=== PATIENT | male | born 1965 | race Two or more races ===

== ENCOUNTER 2022-06-14 16:13 | Emergency (ER) | payer OTHER ==
[~2022-06-14] VITALS: Ht 177.8 cm; Wt 80.0 kg
[2022-06-14 17:53] LABS: COVID AG,FIA SOURCE NASOPHARYNGEAL
[2022-06-14 18:05] LABS: ANION GAP 8 mmol/L (8-16); CALCIUM, TOTAL 9.2 mg/dL (8.8-10.5); CARBON DIOXIDE 30 mmol/L (22-29); CHLORIDE 107 mmol/L (98-107); CREATININE 1.18 mg/dL (0.60-1.30); GLOMERULAR FILTR. RATE CALC > 60 mL/min (>60); GLUCOSE,RANDOM 98 mg/dL (70-110); POTASSIUM 4.1 mmol/L (3.5-5.1); SODIUM SERUM 145 mmol/L (136-145); UREA NITROGEN, BLOOD 17 mg/dL (7-18)
[2022-06-14 18:11] LABS: ALANINE AMINOTRANSFERASE 24 U/L (12-78); ALBUMIN 3.9 g/dL (3.4-5.0); ALKALINE PHOSPHATASE 64 U/L (46-116); ASPARTATE AMINOTRANSFERASE 19 U/L (15-37); BILIRUBIN,TOTAL 1.4 mg/dL (0.1-1.0); TOTAL PROTEIN, SERUM 7.1 g/dL (6.4-8.2)
[2022-06-14 18:12] LABS: BASOPHILS % (AUTO) 0.1 % (0.0-2.0); EOSINOPHILS % (AUTO) 0.2 % (1.0-6.0); HEMATOCRIT 45.3 % (41-53); HEMOGLOBIN 14.7 g/dL (13.5-17.5); LYMPHOCYTES # (AUTO) 1.4 K/uL (1.0-4.8); LYMPHOCYTES % (AUTO) 16.6 % (22.0-44.0); MEAN CORPUSCULAR HEMOGLOBIN 27.5 pg (26.0-34.0); MEAN CORPUSCULAR HGB CONC 32.5 G/dL (31.0-37.0); MEAN CORPUSCULAR VOLUME 85 fL (80-100); MONOCYTES # (AUTO) 0.5 K/uL (0.1-1.0); MONOCYTES % (AUTO) 6.3 % (2.0-9.0); NEUTROPHILS # (AUTO) 6.6 K/uL (1.8-7.7); NEUTROPHILS % (AUTO) 76.8 % (40.0-70.0); PLATELET COUNT (AUTO) 173 K/uL (150-450); RED BLOOD CELL COUNT(AUTO) 5.37 MIL/uL (4.50-5.90); RED CELL DISTRIBUTION WIDTH 13.8 % (11.5-14.5)
[2022-06-14 18:59] VITALS: BP 157/104
== END 2022-06-14 19:16 | disposition home or self-care (01) ==
LOC: EMS 16:13
DX: R45.851 Suicidal ideations (principal); F10.20 Alcohol dependence, uncomplicated; Z20.822 Contact with and (suspected) exposure to COVID-19
CPT/HCPCS: 99284; 87426; 80053; 85025; 36415; G0480

== ENCOUNTER 2022-06-19 13:20 | Emergency (ER) | payer OTHER ==
[~2022-06-19] VITALS: Ht 177.8 cm; Wt 70.0 kg
[2022-06-19 14:12] LABS: BASOPHILS % (AUTO) 0.3 % (0.0-2.0); EOSINOPHILS % (AUTO) 0.4 % (1.0-6.0); HEMATOCRIT 47.2 % (41-53); HEMOGLOBIN 15.4 g/dL (13.5-17.5); LYMPHOCYTES # (AUTO) 1.8 K/uL (1.0-4.8); LYMPHOCYTES % (AUTO) 25.7 % (22.0-44.0); MEAN CORPUSCULAR HEMOGLOBIN 27.8 pg (26.0-34.0); MEAN CORPUSCULAR HGB CONC 32.7 G/dL (31.0-37.0); MEAN CORPUSCULAR VOLUME 85 fL (80-100); MONOCYTES # (AUTO) 0.4 K/uL (0.1-1.0); MONOCYTES % (AUTO) 6.2 % (2.0-9.0); NEUTROPHILS # (AUTO) 4.8 K/uL (1.8-7.7); NEUTROPHILS % (AUTO) 67.4 % (40.0-70.0); PLATELET COUNT (AUTO) 172 K/uL (150-450); RED BLOOD CELL COUNT(AUTO) 5.55 MIL/uL (4.50-5.90); RED CELL DISTRIBUTION WIDTH 13.9 % (11.5-14.5)
[2022-06-19 14:30] LABS: B-TYPE NATRIURETIC PEPTIDE 6 pg/mL (0-100)
[2022-06-19 14:33] LABS: ANION GAP 12 mmol/L (8-16); CALCIUM, TOTAL 8.8 mg/dL (8.8-10.5); CARBON DIOXIDE 24 mmol/L (22-29); CHLORIDE 106 mmol/L (98-107); CREATININE 1.06 mg/dL (0.60-1.30); GLOMERULAR FILTR. RATE CALC > 60 mL/min (>60); GLUCOSE,RANDOM 137 mg/dL (70-110); POTASSIUM 3.5 mmol/L (3.5-5.1); SODIUM SERUM 142 mmol/L (136-145); UREA NITROGEN, BLOOD 13 mg/dL (7-18)
[2022-06-19 14:36] LABS: PROTHROMBIN TIME 10.9 SEC (9.4-11.6)
[2022-06-19 14:38] LABS: ALANINE AMINOTRANSFERASE 25 U/L (12-78); ALKALINE PHOSPHATASE 60 U/L (46-116); ASPARTATE AMINOTRANSFERASE 19 U/L (15-37); BILIRUBIN,TOTAL 1.1 mg/dL (0.1-1.0); CREATINE KINASE, TOTAL ONLY 61 U/L (39-308); PHOSPHORUS 2.8 mg/dL (2.5-4.9); TOTAL PROTEIN, SERUM 7.1 g/dL (6.4-8.2)
[2022-06-19 14:46] LABS: SALICYLATE < 0.2 mg/dL (2.8-20.0)
[2022-06-19 14:51] LABS: ACETAMINOPHEN < 2 mcg/mL (10-30)
[2022-06-19 15:18] LABS: COVID AG,FIA SOURCE NASOPHARYNGEAL
[2022-06-19 15:35] LABS: APPEARANCE,URINE CLEAR (CLEAR); BILIRUBIN,URINE NEGATIVE (NEGATIVE); GLUCOSE, URINE (UA) NEGATIVE (NEGATIVE); KETONES,URINE NEGATIVE (NEGATIVE); LEUKOCYTE ESTERASE ,URINE NEGATIVE (NEGATIVE); NITRATE,URINE NEGATIVE (NEGATIVE); OCCULT BLOOD,URINE NEGATIVE (NEGATIVE); PROTEIN,URINE NEGATIVE (NEGATIVE); UROBILINOGEN,URINE <=1.0 mg/dL (<=1.0)
[2022-06-19 15:40] LABS: AMPHET/METH SCREEN,URINE NEGATIVE (NEGATIVE); BARBITURATE SCREEN, URINE NEGATIVE (NEGATIVE); BENZODIAZEPINES SCREEN,URINE NEGATIVE (NEGATIVE); CANNABINOID SCREEN,URINE NEGATIVE (NEGATIVE); COCAINE SCREEN,URINE NEGATIVE (NEGATIVE); METHADONE SCREEN, URINE NEGATIVE (NEGATIVE); OPIATE SCREEN,URINE NEGATIVE (NEGATIVE); PHENCYCLIDINE SCREEN,URINE NEGATIVE (NEGATIVE)
[2022-06-19] MEDS ORDERED: IBUPROFEN 600 MG TABLET PO ONE (21:30)
[2022-06-19 22:33] VITALS: BP 113/69
== END 2022-06-19 23:10 | disposition home or self-care (01) ==
LOC: EDUNIT# 13:20 → EMS 13:23
DX: F10.129 Alcohol abuse with intoxication, unspecified (principal); R73.9 Hyperglycemia, unspecified; Z20.822 Contact with and (suspected) exposure to COVID-19
CPT/HCPCS: 99285; 71045; 87426; 80053; 81003; 82550; 83735; 83880; 84100; 84484; 85025; 85610; 85730; 36415; 93005; 80307 ×2; G0480; G0481

== ENCOUNTER 2022-06-20 14:06 | Inpatient (IN) | payer OTHER ==
[~2022-06-20] VITALS: Ht 175.3 cm; Wt 74.2 kg
[2022-06-20 15:04] VITALS: BP 130/96
[2022-06-20] MEDS ORDERED: CYANOCOBALAMIN 1,000 MCG/ML VIAL IM ONE (15:45)
[2022-06-20] MEDS ORDERED: LORazepam 2 MG TABLET PO PRN ×2 (15:45)
[2022-06-20] MEDS ORDERED: PROMETHAZINE HCL 25 MG TABLET PO PRN (15:45)
[2022-06-20] MEDS ORDERED: ZOLPIDEM TARTRATE 10 MG TABLET PO PRN (15:45)
[2022-06-20] MEDS ORDERED: LOPERAMIDE HCL 2 MG CAPSULE PO PRN ×2 (15:45)
[2022-06-20] MEDS ORDERED: HydrOXYzine PAMOATE 50 MG CAPSULE PO PRN (15:45)
[2022-06-20] MEDS ORDERED: QUEtiapine FUMARATE 100 MG TABLET PO PRN (15:45)
[2022-06-20] MEDS ORDERED: MAG HYDROX/AL HYDROX/SIMETH ES 30 ML SUSPENSION UDCUP PO PRN (15:45)
[2022-06-20] MEDS ORDERED: TUBERCULIN, PURIFIED PROTEIN DERIVATIVE 5 TU/0.1 ML SYRINGE ID ONE (15:45)
[2022-06-20] MEDS ORDERED: GuaiFENesin/D-METHORPHAN [SUGAR-FREE] 200-20MG/10 ML SYRUP UDCUP PO PRN (15:45)
[2022-06-20 17:26] VITALS: BP 140/96
[2022-06-20] MEDS: GABAPENTIN 300 MG CAPSULE PO SCH ×2 (17:27→20:26)
[2022-06-20] MEDS: THIAMINE 100 MG TABLET PO SCH (17:27)
[2022-06-20 17:45] VITALS: BP 136/92
[2022-06-20 18:00] VITALS: BP 133/92
[2022-06-20 18:15] VITALS: BP 130/90
[2022-06-20] MEDS ORDERED: INFLUENZA VIRUS VACCINE QVS 2022-23 (6MO+)/PF 60 MCG/0.5 ML SYRINGE IM. ONE (19:00)
[2022-06-20 19:24] LABS: BASOPHILS % (AUTO) 0.3 % (0.0-2.0); EOSINOPHILS % (AUTO) 0.3 % (1.0-6.0); HEMATOCRIT 51.7 % (41-53); HEMOGLOBIN 16.9 g/dL (13.5-17.5); LYMPHOCYTES # (AUTO) 1.8 K/uL (1.0-4.8); LYMPHOCYTES % (AUTO) 18.2 % (22.0-44.0); MEAN CORPUSCULAR HGB CONC 32.7 G/dL (31.0-37.0); MEAN CORPUSCULAR VOLUME 86 fL (80-100); MONOCYTES # (AUTO) 0.7 K/uL (0.1-1.0); MONOCYTES % (AUTO) 7.1 % (2.0-9.0); NEUTROPHILS # (AUTO) 7.1 K/uL (1.8-7.7); NEUTROPHILS % (AUTO) 74.1 % (40.0-70.0); PLATELET COUNT (AUTO) 213 K/uL (150-450); RED BLOOD CELL COUNT(AUTO) 6.05 MIL/uL (4.50-5.90); RED CELL DISTRIBUTION WIDTH 13.8 % (11.5-14.5)
[2022-06-20 19:34] LABS: HEMOGLOBIN A1C 5.4 % (3.8-5.6)
[2022-06-20 19:38] LABS: ALBUMIN 4.9 g/dL (3.4-5.0); BILIRUBIN,TOTAL 1.5 mg/dL (0.1-1.0); CALCIUM, TOTAL 9.6 mg/dL (8.8-10.5); CHOL/HDL RATIO 3.3 (4.2-7.3); CREATININE 1.27 mg/dL (0.60-1.30); POTASSIUM 4.9 mmol/L (3.5-5.1); TOTAL PROTEIN, SERUM 8.1 g/dL (6.4-8.2)
[2022-06-20 20:01] LABS: FREE T4 (FREE THYROXINE) 1.02 ng/dL (0.76-1.46); THYROID STIMULATING HORMONE 1.37 uIU/mL (0.36-3.74)
[2022-06-20] MEDS: MELATONIN 5 MG TABLET PO SCH (20:26)
[2022-06-20] MEDS ORDERED: MIRTAZAPINE 15 MG TABLET PO SCH (21:00)
[2022-06-20] MEDS ORDERED: DIAZEPAM 10 MG TABLET PO PRN (22:30)
[2022-06-20 23:43] VITALS: BP 127/70
[2022-06-21] VITALS (7 sets, daily range): BP systolic 117–140; BP diastolic 70–84
[2022-06-21] MEDS ORDERED: DIAZEPAM 10 MG TABLET PO PRN (07:00)
[2022-06-21] MEDS ORDERED: LORazepam 2 MG TABLET PO PRN (07:00)
[2022-06-21 07:55] LABS: BASOPHILS % (AUTO) 0.3 % (0.0-2.0); EOSINOPHILS % (AUTO) 1.3 % (1.0-6.0); HEMATOCRIT 42.4 % (41-53); HEMOGLOBIN 14.5 g/dL (13.5-17.5); LYMPHOCYTES # (AUTO) 2.5 K/uL (1.0-4.8); MEAN CORPUSCULAR HGB CONC 34.2 G/dL (31.0-37.0); MEAN CORPUSCULAR VOLUME 85 fL (80-100); MONOCYTES # (AUTO) 0.6 K/uL (0.1-1.0); MONOCYTES % (AUTO) 7.8 % (2.0-9.0); NEUTROPHILS # (AUTO) 3.9 K/uL (1.8-7.7); NEUTROPHILS % (AUTO) 54.6 % (40.0-70.0); PLATELET COUNT (AUTO) 157 K/uL (150-450); RED CELL DISTRIBUTION WIDTH 13.5 % (11.5-14.5)
[2022-06-21 08:37] LABS: ALBUMIN 3.6 g/dL (3.4-5.0); BILIRUBIN,TOTAL 0.9 mg/dL (0.1-1.0); CALCIUM, TOTAL 9.1 mg/dL (8.8-10.5); CHOL/HDL RATIO 3.6 (4.2-7.3); CREATININE 1.43 mg/dL (0.60-1.30); FREE T4 (FREE THYROXINE) 0.91 ng/dL (0.76-1.46); POTASSIUM 4.2 mmol/L (3.5-5.1); THYROID STIMULATING HORMONE 1.65 uIU/mL (0.36-3.74); TOTAL PROTEIN, SERUM 6.5 g/dL (6.4-8.2)
[2022-06-21] MEDS: NALTREXONE HCL 50 MG TABLET PO SCH (08:48)
[2022-06-21] MEDS: MULTIVITAMINS WITH MINERALS, THERAPEUTIC TABLET PO SCH (08:48)
[2022-06-21] MEDS: DIAZEPAM 10 MG TABLET PO SCH ×4 (08:48→21:26)
[2022-06-21] MEDS: THIAMINE 100 MG TABLET PO SCH ×2 (08:48→16:42)
[2022-06-21] MEDS: GABAPENTIN 300 MG CAPSULE PO SCH ×4 (08:48→21:26)
[2022-06-21] MEDS: OMEGA-3/DHA/EPA/FISH OIL 1,000 MG CAPSULE PO SCH (08:49)
[2022-06-21] MEDS: FOLIC ACID 1 MG TABLET PO SCH (08:49)
[2022-06-21] MEDS: DIVALPROEX SODIUM 250 MG ER TABLET PO SCH (08:49)
[2022-06-21 08:57] LABS: HEMOGLOBIN A1C 5.5 % (3.8-5.6)
[2022-06-21] MEDS ORDERED: LORazepam 2 MG TABLET PO SCH (09:00)
[2022-06-21 15:22] LABS: APPEARANCE,URINE TURBID (CLEAR); BILIRUBIN,URINE NEGATIVE (NEGATIVE); GLUCOSE, URINE (UA) NEGATIVE (NEGATIVE); KETONES,URINE NEGATIVE (NEGATIVE); LEUKOCYTE ESTERASE ,URINE NEGATIVE (NEGATIVE); NITRATE,URINE NEGATIVE (NEGATIVE); OCCULT BLOOD,URINE MODERATE (NEGATIVE); PH,URINE 5.5 (5.0-8.0); PROTEIN,URINE TRACE mg/dL (NEGATIVE); SPECIFIC GRAVITIY, URINE 1.027 (1.003-1.030); UROBILINOGEN,URINE <=1.0 mg/dL (<=1.0)
[2022-06-21 15:44] LABS: BACTERIA,URINE Many /HPF (None Seen); CALCIUM OXALATE CRYSTALS,UR Few /LPF (None Seen); WBC,URINE 0-2 /HPF (0-5)
[2022-06-21 16:03] LABS: AMPHET/METH SCREEN,URINE NEGATIVE (NEGATIVE); BARBITURATE SCREEN, URINE NEGATIVE (NEGATIVE); BENZODIAZEPINES SCREEN,URINE POSITIVE (NEGATIVE); CANNABINOID SCREEN,URINE NEGATIVE (NEGATIVE); COCAINE SCREEN,URINE NEGATIVE (NEGATIVE); METHADONE SCREEN, URINE NEGATIVE (NEGATIVE); OPIATE SCREEN,URINE NEGATIVE (NEGATIVE); PHENCYCLIDINE SCREEN,URINE NEGATIVE (NEGATIVE)
[2022-06-21] MEDS: MELATONIN 5 MG TABLET PO SCH (21:25)
[2022-06-21] MEDS: MIRTAZAPINE 30 MG TABLET PO SCH (21:25)
[2022-06-22 08:05] VITALS: BP 150/98
[2022-06-22] MEDS: OMEGA-3/DHA/EPA/FISH OIL 1,000 MG CAPSULE PO SCH (08:25)
[2022-06-22] MEDS: DIVALPROEX SODIUM 250 MG ER TABLET PO SCH (08:26)
[2022-06-22] MEDS: THIAMINE 100 MG TABLET PO SCH ×2 (08:26→17:09)
[2022-06-22] MEDS: MULTIVITAMINS WITH MINERALS, THERAPEUTIC TABLET PO SCH (08:26)
[2022-06-22] MEDS: GABAPENTIN 300 MG CAPSULE PO SCH ×4 (08:26→20:31)
[2022-06-22] MEDS: FOLIC ACID 1 MG TABLET PO SCH (08:26)
[2022-06-22] MEDS: NALTREXONE HCL 50 MG TABLET PO SCH (08:26)
[2022-06-22] MEDS: DIAZEPAM 10 MG TABLET PO SCH ×4 (08:27→20:31)
[2022-06-22 08:34] VITALS: BP 150/98
[2022-06-22] MEDS: NITROFURANTOIN MONOHYD/M-CRYST 100 MG CAPSULE [MACROBID] PO SCH ×2 (10:51→17:09)
[2022-06-22 20:05] VITALS: BP 138/91
[2022-06-22] MEDS: MIRTAZAPINE 30 MG TABLET PO SCH (20:31)
[2022-06-22] MEDS: MELATONIN 5 MG TABLET PO SCH (20:31)
[2022-06-23] MEDS ORDERED: LORazepam 1 MG TABLET PO PRN (07:00)
[2022-06-23] MEDS ORDERED: DIAZEPAM 5 MG TABLET PO PRN (07:00)
[2022-06-23 08:32] VITALS: BP 137/81
[2022-06-23] MEDS: DIAZEPAM 5 MG TABLET PO SCH ×4 (08:45→21:01)
[2022-06-23] MEDS: THIAMINE 100 MG TABLET PO SCH ×2 (08:45→16:36)
[2022-06-23] MEDS: NITROFURANTOIN MONOHYD/M-CRYST 100 MG CAPSULE [MACROBID] PO SCH ×2 (08:45→16:36)
[2022-06-23] MEDS: MULTIVITAMINS WITH MINERALS, THERAPEUTIC TABLET PO SCH (08:45)
[2022-06-23] MEDS: OMEGA-3/DHA/EPA/FISH OIL 1,000 MG CAPSULE PO SCH (08:45)
[2022-06-23] MEDS: GABAPENTIN 300 MG CAPSULE PO SCH ×4 (08:45→21:00)
[2022-06-23] MEDS: NALTREXONE HCL 50 MG TABLET PO SCH (08:45)
[2022-06-23] MEDS: FOLIC ACID 1 MG TABLET PO SCH (08:45)
[2022-06-23] MEDS: DIVALPROEX SODIUM 250 MG ER TABLET PO SCH (08:45)
[2022-06-23] MEDS ORDERED: LORazepam 1 MG TABLET PO SCH (09:00)
[2022-06-23 09:46] VITALS: BP 138/91
[2022-06-23 16:13] VITALS: BP 136/92
[2022-06-23 20:55] VITALS: BP 144/92
[2022-06-23] MEDS: MIRTAZAPINE 30 MG TABLET PO SCH (21:00)
[2022-06-23] MEDS: MELATONIN 5 MG TABLET PO SCH (21:00)
[2022-06-23 21:47] VITALS: BP 138/78
[2022-06-24] MEDS ORDERED: DIAZEPAM 5 MG TABLET PO PRN (07:00)
[2022-06-24] MEDS ORDERED: LORazepam 1 MG TABLET PO PRN (07:00)
[2022-06-24 08:24] VITALS: BP 134/90
[2022-06-24] MEDS: MULTIVITAMINS WITH MINERALS, THERAPEUTIC TABLET PO SCH (09:11)
[2022-06-24] MEDS: NITROFURANTOIN MONOHYD/M-CRYST 100 MG CAPSULE [MACROBID] PO SCH ×2 (09:12→16:50)
[2022-06-24] MEDS: OMEGA-3/DHA/EPA/FISH OIL 1,000 MG CAPSULE PO SCH (09:12)
[2022-06-24] MEDS: GABAPENTIN 300 MG CAPSULE PO SCH ×4 (09:12→20:26)
[2022-06-24] MEDS: NALTREXONE HCL 50 MG TABLET PO SCH (09:12)
[2022-06-24] MEDS: THIAMINE 100 MG TABLET PO SCH ×2 (09:12→16:50)
[2022-06-24] MEDS: DIVALPROEX SODIUM 250 MG ER TABLET PO SCH (09:12)
[2022-06-24] MEDS: FOLIC ACID 1 MG TABLET PO SCH (09:12)
[2022-06-24 09:44] VITALS: BP 134/90
[2022-06-24] MEDS: MELATONIN 5 MG TABLET PO SCH (20:26)
[2022-06-24] MEDS: MIRTAZAPINE 30 MG TABLET PO SCH (20:26)
[2022-06-24 20:39] VITALS: BP 128/82
[2022-06-25 08:27] VITALS: BP 126/79
[2022-06-25] MEDS: THIAMINE 100 MG TABLET PO SCH ×2 (09:41→16:56)
[2022-06-25] MEDS: OMEGA-3/DHA/EPA/FISH OIL 1,000 MG CAPSULE PO SCH (09:41)
[2022-06-25] MEDS: NITROFURANTOIN MONOHYD/M-CRYST 100 MG CAPSULE [MACROBID] PO SCH ×2 (09:42→16:56)
[2022-06-25] MEDS: DIVALPROEX SODIUM 250 MG ER TABLET PO SCH (09:42)
[2022-06-25] MEDS: NALTREXONE HCL 50 MG TABLET PO SCH (09:42)
[2022-06-25] MEDS: MULTIVITAMINS WITH MINERALS, THERAPEUTIC TABLET PO SCH (09:42)
[2022-06-25] MEDS: GABAPENTIN 300 MG CAPSULE PO SCH ×4 (09:42→21:00)
[2022-06-25] MEDS: FOLIC ACID 1 MG TABLET PO SCH (09:42)
[2022-06-25 10:16] LABS: GLUCOMETER DEV NAME(LOC) POC.BV
[2022-06-25] MEDS ORDERED: QUEtiapine FUMARATE 200 MG TABLET PO PRN (16:00)
[2022-06-25] MEDS ORDERED: GABAPENTIN 300 MG CAPSULE PO PRN (16:00)
[2022-06-25 20:34] VITALS: BP 144/99
[2022-06-25] MEDS ORDERED: QUEtiapine FUMARATE 200 MG TABLET PO SCH (21:00)
[2022-06-25] MEDS ORDERED: ZOLPIDEM TARTRATE 10 MG TABLET PO SCH (21:00)
[2022-06-25] MEDS ORDERED: DIVALPROEX SODIUM 250 MG ER TABLET PO SCH (21:00)
[2022-06-25] MEDS: MELATONIN 5 MG TABLET PO SCH (21:23)
[2022-06-25] MEDS: MIRTAZAPINE 30 MG TABLET PO SCH (21:34)
[2022-06-26] MEDS: NITROFURANTOIN MONOHYD/M-CRYST 100 MG CAPSULE [MACROBID] PO SCH ×2 (08:46→16:37)
[2022-06-26] MEDS: MULTIVITAMINS WITH MINERALS, THERAPEUTIC TABLET PO SCH (08:46)
[2022-06-26] MEDS: GABAPENTIN 300 MG CAPSULE PO SCH ×3 (08:46→16:37)
[2022-06-26] MEDS: FOLIC ACID 1 MG TABLET PO SCH (08:47)
[2022-06-26] MEDS: THIAMINE 100 MG TABLET PO SCH ×2 (08:47→16:37)
[2022-06-26] MEDS: NALTREXONE HCL 50 MG TABLET PO SCH (08:47)
[2022-06-26] MEDS: OMEGA-3/DHA/EPA/FISH OIL 1,000 MG CAPSULE PO SCH (08:47)
[2022-06-26] MEDS ORDERED: MODAFINIL 100 MG TABLET PO SCH (09:00)
[2022-06-26 09:17] VITALS: BP 140/90
[2022-06-26] MEDS: MELATONIN 5 MG TABLET PO SCH (20:30)
[2022-06-26] MEDS: ZALEPLON 5 MG CAPSULE PO SCH (20:30)
[2022-06-26 20:47] VITALS: BP 136/92
[2022-06-26] MEDS: MIRTAZAPINE 30 MG TABLET PO SCH (21:26)
[2022-06-26] MEDS ORDERED: QUEtiapine FUMARATE 300 MG TABLET PO SCH (22:00)
[2022-06-27] MEDS: GABAPENTIN 300 MG CAPSULE PO SCH ×3 (06:50→16:28)
[2022-06-27] MEDS ORDERED: MODAFINIL 100 MG TABLET PO SCH (07:00)
[2022-06-27 09:24] VITALS: BP 130/84
[2022-06-27] MEDS: NITROFURANTOIN MONOHYD/M-CRYST 100 MG CAPSULE [MACROBID] PO SCH (09:31)
[2022-06-27] MEDS: THIAMINE 100 MG TABLET PO SCH ×2 (09:32→16:28)
[2022-06-27] MEDS: OMEGA-3/DHA/EPA/FISH OIL 1,000 MG CAPSULE PO SCH (09:32)
[2022-06-27] MEDS: FOLIC ACID 1 MG TABLET PO SCH (09:32)
[2022-06-27] MEDS: NALTREXONE HCL 50 MG TABLET PO SCH (09:32)
[2022-06-27] MEDS: MULTIVITAMINS WITH MINERALS, THERAPEUTIC TABLET PO SCH (09:32)
[2022-06-27] MEDS ORDERED: PROPRANOLOL HCL 10 MG TABLET PO ONE (16:00)
[2022-06-27] MEDS: PROPRANOLOL HCL 10 MG TABLET PO SCH (16:17)
[2022-06-27 16:32] VITALS: BP 134/92
[2022-06-27] MEDS ORDERED: LORazepam 1 MG TABLET PO PRN (19:45)
[2022-06-27] MEDS: MELATONIN 5 MG TABLET PO SCH (20:35)
[2022-06-27] MEDS: ZALEPLON 5 MG CAPSULE PO SCH (20:35)
[2022-06-27 20:48] VITALS: BP 143/89
[2022-06-27] MEDS ORDERED: PARoxetine HCL 10 MG TABLET PO SCH (21:00)
[2022-06-27] MEDS: MIRTAZAPINE 30 MG TABLET PO SCH (21:32)
[2022-06-27] MEDS ORDERED: QUEtiapine FUMARATE 200 MG TABLET PO SCH (22:00)
[2022-06-28] MEDS: GABAPENTIN 300 MG CAPSULE PO SCH ×2 (06:40→11:30)
[2022-06-28] MEDS ORDERED: MODAFINIL 100 MG TABLET PO SCH (07:00)
[2022-06-28 07:06] LABS: QUANTIFERON, TB GOLD PLUS Negative (Negative)
[2022-06-28 09:08] VITALS: BP 162/73
[2022-06-28] MEDS: OMEGA-3/DHA/EPA/FISH OIL 1,000 MG CAPSULE PO SCH (09:50)
[2022-06-28] MEDS: THIAMINE 100 MG TABLET PO SCH ×2 (09:51→18:20)
[2022-06-28] MEDS: PROPRANOLOL HCL 10 MG TABLET PO SCH ×3 (09:51→18:20)
[2022-06-28] MEDS ORDERED: OLANZapine 5 MG RAPDIS TABLET PO ONE (17:30)
[2022-06-28] MEDS ORDERED: PARoxetine HCL 10 MG TABLET PO SCH (21:00)
[2022-06-28] MEDS: MELATONIN 5 MG TABLET PO SCH (21:02)
[2022-06-28] MEDS: TraZODone HCL 100 MG TABLET PO SCH (21:03)
[2022-06-28] MEDS: ZALEPLON 5 MG CAPSULE PO SCH (21:03)
[2022-06-28] MEDS: OLANZapine 10 MG RAPDIS TABLET PO SCH (21:05)
[2022-06-28] MEDS: PARoxetine HCL 20 MG TABLET PO SCH (21:05)
[2022-06-29] MEDS: OLANZapine 5 MG RAPDIS TABLET PO PRN (06:44)
[2022-06-29 09:11] VITALS: BP 159/97
[2022-06-29] MEDS: OMEGA-3/DHA/EPA/FISH OIL 1,000 MG CAPSULE PO SCH (09:18)
[2022-06-29] MEDS: PROPRANOLOL HCL 10 MG TABLET PO SCH ×3 (09:19→16:17)
[2022-06-29] MEDS: THIAMINE 100 MG TABLET PO SCH ×2 (09:19→16:17)
[2022-06-29] MEDS: BENZTROPINE MESYLATE 0.5 MG TABLET PO SCH ×3 (09:19→16:17)
[2022-06-29 12:40] VITALS: BP 145/97
[2022-06-29 16:14] VITALS: BP 152/97
[2022-06-29 20:00] VITALS: BP 142/93
[2022-06-29] MEDS: TraZODone HCL 100 MG TABLET PO SCH (20:08)
[2022-06-29] MEDS: MELATONIN 5 MG TABLET PO SCH (20:08)
[2022-06-29] MEDS: PARoxetine HCL 20 MG TABLET PO SCH (20:08)
[2022-06-29] MEDS: ZALEPLON 5 MG CAPSULE PO SCH (20:08)
[2022-06-29] MEDS: OLANZapine 10 MG RAPDIS TABLET PO SCH (21:04)
[2022-06-30] MEDS: OLANZapine 5 MG RAPDIS TABLET PO PRN (03:53)
[2022-06-30 08:22] VITALS: BP 133/86
[2022-06-30] MEDS ORDERED: BENZTROPINE MESYLATE 0.5 MG TABLET PO SCH (09:00)
[2022-06-30] MEDS: THIAMINE 100 MG TABLET PO SCH ×2 (09:00→11:04)
[2022-06-30] MEDS: OMEGA-3/DHA/EPA/FISH OIL 1,000 MG CAPSULE PO SCH ×2 (09:00→11:05)
[2022-06-30] MEDS: PROPRANOLOL HCL 10 MG TABLET PO SCH ×4 (09:00→16:55)
[2022-06-30] MEDS ORDERED: PARoxetine HCL 10 MG TABLET PO SCH (09:00)
[2022-06-30 10:00] VITALS: BP 140/85
[2022-06-30] MEDS: BENZTROPINE MESYLATE 0.5 MG TABLET PO ONE ×2 (10:26→11:04)
[2022-06-30] MEDS: PARoxetine HCL 10 MG TABLET PO ONE ×2 (10:26→11:04)
[2022-06-30 13:01] VITALS: BP 142/80
[2022-06-30 16:41] VITALS: BP 150/79
[2022-06-30] MEDS ORDERED: TEMAZEPAM 15 MG CAPSULE PO PRN (17:45)
[2022-06-30] MEDS ORDERED: PROPRANOLOL HCL 10 MG TABLET PO SCH (18:00)
[2022-06-30] MEDS: QUEtiapine FUMARATE 25 MG TABLET PO SCH (18:27)
[2022-06-30] MEDS: ClonazePAM 0.5 MG TABLET PO SCH (18:27)
[2022-06-30] MEDS: TraZODone HCL 100 MG TABLET PO SCH (20:50)
[2022-06-30] MEDS: ClonazePAM 1 MG TABLET PO SCH (20:50)
[2022-06-30] MEDS: QUEtiapine FUMARATE 100 MG TABLET PO SCH (20:51)
[2022-06-30] MEDS: MELATONIN 5 MG TABLET PO SCH (20:51)
[2022-06-30 21:14] VITALS: BP 148/79
[2022-07-01] MEDS: OMEGA-3/DHA/EPA/FISH OIL 1,000 MG CAPSULE PO SCH (08:49)
[2022-07-01] MEDS: PROPRANOLOL HCL 10 MG TABLET PO SCH ×3 (08:50→16:35)
[2022-07-01] MEDS: QUEtiapine FUMARATE 25 MG TABLET PO SCH ×3 (08:50→16:35)
[2022-07-01] MEDS: ClonazePAM 0.5 MG TABLET PO SCH ×3 (08:50→16:35)
[2022-07-01 11:26] VITALS: BP 120/80
[2022-07-01 13:15] VITALS: BP 120/85
[2022-07-01 16:29] VITALS: BP 132/69
[2022-07-01] MEDS: QUEtiapine FUMARATE 100 MG TABLET PO SCH (20:45)
[2022-07-01] MEDS: ClonazePAM 1 MG TABLET PO SCH (20:45)
[2022-07-01] MEDS: TraZODone HCL 100 MG TABLET PO SCH (20:45)
[2022-07-01] MEDS: MELATONIN 5 MG TABLET PO SCH (20:45)
[2022-07-01 22:10] VITALS: BP 136/73
[2022-07-02] MEDS: ClonazePAM 0.5 MG TABLET PO SCH ×4 (08:35→20:47)
[2022-07-02] MEDS: PROPRANOLOL HCL 10 MG TABLET PO SCH ×3 (08:35→17:01)
[2022-07-02] MEDS: OMEGA-3/DHA/EPA/FISH OIL 1,000 MG CAPSULE PO SCH (08:35)
[2022-07-02] MEDS: QUEtiapine FUMARATE 25 MG TABLET PO SCH ×3 (08:35→17:02)
[2022-07-02 09:09] VITALS: BP 131/77
[2022-07-02] MEDS: TraZODone HCL 100 MG TABLET PO SCH (20:39)
[2022-07-02] MEDS: QUEtiapine FUMARATE 100 MG TABLET PO SCH (20:39)
[2022-07-02] MEDS: MELATONIN 5 MG TABLET PO SCH (20:40)
[2022-07-02] MEDS ORDERED: LORazepam 0.5 MG TABLET PO PRN (20:45)
[2022-07-02 21:00] VITALS: BP 116/79
[2022-07-03] MEDS ORDERED: PARoxetine HCL 10 MG TABLET PO SCH (09:00)
[2022-07-03 09:05] VITALS: BP 125/78
[2022-07-03] MEDS: OMEGA-3/DHA/EPA/FISH OIL 1,000 MG CAPSULE PO SCH (09:09)
[2022-07-03] MEDS: QUEtiapine FUMARATE 25 MG TABLET PO SCH ×2 (09:09→13:10)
[2022-07-03] MEDS: PROPRANOLOL HCL 10 MG TABLET PO SCH ×3 (09:09→16:53)
[2022-07-03] MEDS: ClonazePAM 0.5 MG TABLET PO SCH ×4 (09:12→20:36)
[2022-07-03 13:00] VITALS: BP 115/66
[2022-07-03 16:51] VITALS: BP 116/91
[2022-07-03] MEDS: MELATONIN 5 MG TABLET PO SCH (20:36)
[2022-07-03] MEDS: QUEtiapine FUMARATE 100 MG TABLET PO SCH (20:37)
[2022-07-03] MEDS: TraZODone HCL 100 MG TABLET PO SCH (20:37)
[2022-07-03 20:49] VITALS: BP 126/91
[2022-07-04] MEDS ORDERED: PARoxetine HCL 20 MG TABLET PO SCH (09:00)
[2022-07-04] MEDS: OMEGA-3/DHA/EPA/FISH OIL 1,000 MG CAPSULE PO SCH (09:10)
[2022-07-04] MEDS: PROPRANOLOL HCL 10 MG TABLET PO SCH ×3 (09:10→16:12)
[2022-07-04] MEDS: ClonazePAM 0.5 MG TABLET PO SCH ×4 (09:11→20:05)
[2022-07-04 09:44] VITALS: BP 120/75
[2022-07-04 13:05] VITALS: BP 126/78
[2022-07-04] MEDS: TraZODone HCL 150 MG TABLET PO SCH (20:05)
[2022-07-04] MEDS: QUEtiapine FUMARATE 25 MG TABLET PO SCH (20:06)
[2022-07-04] MEDS: MELATONIN 5 MG TABLET PO SCH (20:12)
[2022-07-04 20:40] VITALS: BP 123/8
[2022-07-05] MEDS: ClonazePAM 0.5 MG TABLET PO SCH ×4 (08:25→20:59)
[2022-07-05] MEDS: OMEGA-3/DHA/EPA/FISH OIL 1,000 MG CAPSULE PO SCH (08:26)
[2022-07-05] MEDS: PROPRANOLOL HCL 10 MG TABLET PO SCH ×3 (08:41→16:53)
[2022-07-05] MEDS ORDERED: PARoxetine HCL 10 MG TABLET PO SCH (09:00)
[2022-07-05 09:12] VITALS: BP 118/76
[2022-07-05 17:26] LABS: GLUCOMETER DEV NAME(LOC) POC.BV
[2022-07-05 20:50] VITALS: BP 127/87
[2022-07-05] MEDS: TraZODone HCL 150 MG TABLET PO SCH (20:58)
[2022-07-05] MEDS: MELATONIN 5 MG TABLET PO SCH (20:59)
[2022-07-05] MEDS: QUEtiapine FUMARATE 25 MG TABLET PO SCH (20:59)
[2022-07-06 08:35] VITALS: BP 119/73
[2022-07-06] MEDS: PROPRANOLOL HCL 10 MG TABLET PO SCH ×3 (08:57→16:46)
[2022-07-06] MEDS: OMEGA-3/DHA/EPA/FISH OIL 1,000 MG CAPSULE PO SCH (08:57)
[2022-07-06] MEDS: ClonazePAM 0.5 MG TABLET PO SCH ×4 (08:58→20:19)
[2022-07-06] MEDS ORDERED: PARoxetine HCL 20 MG TABLET PO SCH (09:00)
[2022-07-06] MEDS ORDERED: BuPROPion HCL XL 150 MG ER TABLET PO SCH (09:00)
[2022-07-06 12:57] VITALS: BP 119/79
[2022-07-06 16:43] VITALS: BP 114/78
[2022-07-06] MEDS: TraZODone HCL 100 MG TABLET PO SCH (20:18)
[2022-07-06] MEDS: QUEtiapine FUMARATE 25 MG TABLET PO SCH (20:19)
[2022-07-06] MEDS: MELATONIN 5 MG TABLET PO SCH (20:20)
[2022-07-06 20:26] VITALS: BP 114/78
[2022-07-06] MEDS ORDERED: QUEtiapine FUMARATE 25 MG TABLET PO SCH (21:00)
[2022-07-07] MEDS: PARoxetine HCL 20 MG TABLET PO SCH (08:40)
[2022-07-07] MEDS: BuPROPion HCL XL 150 MG ER TABLET PO SCH (08:40)
[2022-07-07] MEDS: OMEGA-3/DHA/EPA/FISH OIL 1,000 MG CAPSULE PO SCH (08:40)
[2022-07-07] MEDS: PROPRANOLOL HCL 10 MG TABLET PO SCH ×3 (08:40→16:52)
[2022-07-07] MEDS: ClonazePAM 0.5 MG TABLET PO SCH ×4 (08:41→20:06)
[2022-07-07 08:58] VITALS: BP 129/74
[2022-07-07] MEDS: MAGNESIUM HYDROXIDE SUSPENSION 30 ML UDCUP PO PRN (12:38)
[2022-07-07] MEDS: TraZODone HCL 100 MG TABLET PO SCH (20:06)
[2022-07-07] MEDS: QUEtiapine FUMARATE 25 MG TABLET PO SCH (20:06)
[2022-07-07] MEDS: MELATONIN 5 MG TABLET PO SCH (20:07)
[2022-07-07 21:10] VITALS: BP 118/71
[2022-07-08 08:37] VITALS: BP 136/57
[2022-07-08] MEDS: BuPROPion HCL XL 150 MG ER TABLET PO SCH (08:57)
[2022-07-08] MEDS: OMEGA-3/DHA/EPA/FISH OIL 1,000 MG CAPSULE PO SCH (08:57)
[2022-07-08] MEDS: PROPRANOLOL HCL 10 MG TABLET PO SCH ×3 (08:57→16:22)
[2022-07-08] MEDS: PARoxetine HCL 20 MG TABLET PO SCH (08:58)
[2022-07-08] MEDS: ClonazePAM 0.5 MG TABLET PO SCH ×4 (08:58→21:06)
[2022-07-08] MEDS: TraZODone HCL 100 MG TABLET PO SCH (20:38)
[2022-07-08] MEDS: MELATONIN 5 MG TABLET PO SCH (20:39)
[2022-07-08] MEDS: QUEtiapine FUMARATE 25 MG TABLET PO SCH (20:39)
[2022-07-09 01:49] VITALS: BP 112/77
[2022-07-09 08:36] VITALS: BP 119/85
[2022-07-09] MEDS: MAGNESIUM HYDROXIDE SUSPENSION 30 ML UDCUP PO PRN (09:19)
[2022-07-09] MEDS: PROPRANOLOL HCL 10 MG TABLET PO SCH ×3 (09:19→16:35)
[2022-07-09] MEDS: OMEGA-3/DHA/EPA/FISH OIL 1,000 MG CAPSULE PO SCH (09:19)
[2022-07-09] MEDS: PARoxetine HCL 20 MG TABLET PO SCH (09:20)
[2022-07-09] MEDS: BuPROPion HCL XL 150 MG ER TABLET PO SCH (09:21)
[2022-07-09] MEDS: ClonazePAM 0.5 MG TABLET PO SCH ×4 (09:22→20:34)
[2022-07-09] MEDS ORDERED: DOCUSATE CALCIUM 240 MG CAPSULE PO SCH (16:00)
[2022-07-09] MEDS ORDERED: BISACODYL 5 MG EC TABLET PO PRN (16:00)
[2022-07-09] MEDS: BISACODYL 5 MG EC TABLET PO SCH (16:33)
[2022-07-09 16:44] VITALS: BP 118/83
[2022-07-09] MEDS: TraZODone HCL 100 MG TABLET PO SCH (20:35)
[2022-07-09] MEDS: MELATONIN 5 MG TABLET PO SCH (20:35)
[2022-07-09 20:42] VITALS: BP 128/87
[2022-07-09] MEDS ORDERED: BISACODYL 5 MG EC TABLET PO SCH (21:00)
[2022-07-10 08:31] VITALS: BP 120/80
[2022-07-10] MEDS: OMEGA-3/DHA/EPA/FISH OIL 1,000 MG CAPSULE PO SCH (08:49)
[2022-07-10] MEDS: PARoxetine HCL 20 MG TABLET PO SCH (08:49)
[2022-07-10] MEDS: DOCUSATE CALCIUM 240 MG CAPSULE PO SCH (08:50)
[2022-07-10] MEDS: BISACODYL 5 MG EC TABLET PO SCH (08:50)
[2022-07-10] MEDS: BuPROPion HCL XL 150 MG ER TABLET PO SCH (08:50)
[2022-07-10] MEDS: ClonazePAM 0.5 MG TABLET PO SCH ×4 (08:51→20:33)
[2022-07-10] MEDS: PROPRANOLOL HCL 10 MG TABLET PO SCH ×3 (08:53→16:43)
[2022-07-10] MEDS ORDERED: DOCUSATE CALCIUM 240 MG CAPSULE PO SCH (09:00)
[2022-07-10] MEDS ORDERED: BISACODYL 5 MG EC TABLET PO ONE (15:45)
[2022-07-10 16:45] VITALS: BP 129/91
[2022-07-10] MEDS: TraZODone HCL 100 MG TABLET PO SCH (20:33)
[2022-07-10] MEDS: MELATONIN 5 MG TABLET PO SCH (20:33)
[2022-07-10 20:47] VITALS: BP 131/87
[2022-07-11 08:45] VITALS: BP 121/77
[2022-07-11] MEDS ORDERED: BISACODYL 5 MG EC TABLET PO SCH (09:00)
[2022-07-11] MEDS ORDERED: MODAFINIL 100 MG TABLET PO SCH (09:00)
[2022-07-11] MEDS: OMEGA-3/DHA/EPA/FISH OIL 1,000 MG CAPSULE PO SCH (09:14)
[2022-07-11] MEDS: DOCUSATE CALCIUM 240 MG CAPSULE PO SCH (09:16)
[2022-07-11] MEDS: BuPROPion HCL XL 150 MG ER TABLET PO SCH (09:16)
[2022-07-11] MEDS: PROPRANOLOL HCL 10 MG TABLET PO SCH ×3 (09:16→16:40)
[2022-07-11] MEDS: PARoxetine HCL 20 MG TABLET PO SCH (09:16)
[2022-07-11] MEDS: ClonazePAM 0.5 MG TABLET PO SCH ×4 (09:17→20:33)
[2022-07-11 13:04] VITALS: BP 126/83
[2022-07-11 16:38] VITALS: BP 121/76
[2022-07-11 20:30] VITALS: BP 117/83
[2022-07-11] MEDS: TraZODone HCL 100 MG TABLET PO SCH (20:33)
[2022-07-11] MEDS: MELATONIN 5 MG TABLET PO SCH (20:33)
[2022-07-12] MEDS: ClonazePAM 0.5 MG TABLET PO SCH ×3 (09:00→17:03)
[2022-07-12] MEDS: OMEGA-3/DHA/EPA/FISH OIL 1,000 MG CAPSULE PO SCH (09:00)
[2022-07-12] MEDS: BuPROPion HCL XL 150 MG ER TABLET PO SCH (09:01)
[2022-07-12] MEDS: MODAFINIL 100 MG TABLET PO SCH (09:01)
[2022-07-12] MEDS: PARoxetine HCL 20 MG TABLET PO SCH (09:01)
[2022-07-12] MEDS: PROPRANOLOL HCL 10 MG TABLET PO SCH ×3 (09:01→17:04)
[2022-07-12] MEDS: DOCUSATE CALCIUM 240 MG CAPSULE PO SCH (09:02)
[2022-07-12 09:31] VITALS: BP 116/80
[2022-07-12 13:01] LABS: GLUCOMETER DEV NAME(LOC) POC.BV
[2022-07-12] MEDS: MELATONIN 5 MG TABLET PO SCH (20:13)
[2022-07-12] MEDS: TraZODone HCL 100 MG TABLET PO SCH (20:13)
[2022-07-12] MEDS: MIRTAZAPINE 15 MG TABLET PO SCH (20:13)
[2022-07-12 20:39] VITALS: BP 118/78
[2022-07-12] MEDS ORDERED: MIRTAZAPINE 15 MG TABLET PO SCH (21:00)
[2022-07-12] MEDS ORDERED: TraZODone HCL 100 MG TABLET PO SCH (21:00)
[2022-07-13 09:00] VITALS: BP 125/80
[2022-07-13] MEDS: PROPRANOLOL HCL 10 MG TABLET PO SCH ×3 (09:11→17:01)
[2022-07-13] MEDS: OMEGA-3/DHA/EPA/FISH OIL 1,000 MG CAPSULE PO SCH (09:11)
[2022-07-13] MEDS: MODAFINIL 100 MG TABLET PO SCH (09:14)
[2022-07-13] MEDS: PARoxetine HCL 20 MG TABLET PO SCH (09:14)
[2022-07-13] MEDS: BuPROPion HCL XL 150 MG ER TABLET PO SCH (09:15)
[2022-07-13] MEDS: ClonazePAM 0.5 MG TABLET PO SCH ×3 (09:16→17:00)
[2022-07-13] MEDS: DOCUSATE CALCIUM 240 MG CAPSULE PO SCH (09:16)
[2022-07-13 13:24] VITALS: BP 140/88
[2022-07-13 16:25] VITALS: BP 114/83
[2022-07-13 20:21] VITALS: BP 114/83
[2022-07-13] MEDS: TraZODone HCL 100 MG TABLET PO SCH (20:35)
[2022-07-13] MEDS: MELATONIN 5 MG TABLET PO SCH (20:35)
[2022-07-13] MEDS: MIRTAZAPINE 15 MG TABLET PO SCH (20:35)
[2022-07-14 08:32] VITALS: BP 124/83
[2022-07-14] MEDS: PARoxetine HCL 20 MG TABLET PO SCH (08:36)
[2022-07-14] MEDS: MODAFINIL 100 MG TABLET PO SCH (08:36)
[2022-07-14] MEDS: OMEGA-3/DHA/EPA/FISH OIL 1,000 MG CAPSULE PO SCH (08:36)
[2022-07-14] MEDS: DOCUSATE CALCIUM 240 MG CAPSULE PO SCH (08:38)
[2022-07-14] MEDS: PROPRANOLOL HCL 10 MG TABLET PO SCH ×3 (08:38→16:28)
[2022-07-14] MEDS: BuPROPion HCL XL 150 MG ER TABLET PO SCH (08:38)
[2022-07-14] MEDS: ClonazePAM 0.5 MG TABLET PO SCH ×3 (08:39→16:28)
[2022-07-14] MEDS: MAGNESIUM HYDROXIDE SUSPENSION 30 ML UDCUP PO PRN (12:31)
[2022-07-14 12:54] VITALS: BP 116/88
[2022-07-14 16:00] VITALS: BP 124/86
[2022-07-14 20:11] VITALS: BP 127/90
[2022-07-14] MEDS: MIRTAZAPINE 15 MG TABLET PO SCH (20:29)
[2022-07-14] MEDS: MELATONIN 5 MG TABLET PO SCH (20:29)
[2022-07-14] MEDS: TraZODone HCL 100 MG TABLET PO SCH (20:29)
[2022-07-15 09:22] VITALS: BP 125/92
[2022-07-15] MEDS: OMEGA-3/DHA/EPA/FISH OIL 1,000 MG CAPSULE PO SCH (10:28)
[2022-07-15] MEDS: PROPRANOLOL HCL 10 MG TABLET PO SCH ×3 (10:28→17:01)
[2022-07-15] MEDS: PARoxetine HCL 20 MG TABLET PO SCH (10:29)
[2022-07-15] MEDS: ClonazePAM 0.5 MG TABLET PO SCH ×3 (10:29→17:05)
[2022-07-15] MEDS: MODAFINIL 100 MG TABLET PO SCH (10:29)
[2022-07-15] MEDS: DOCUSATE CALCIUM 240 MG CAPSULE PO SCH (10:31)
[2022-07-15] MEDS: BuPROPion HCL XL 150 MG ER TABLET PO SCH (10:31)
[2022-07-15 20:00] VITALS: BP 122/82
[2022-07-15] MEDS: MIRTAZAPINE 15 MG TABLET PO SCH (20:24)
[2022-07-15] MEDS: TraZODone HCL 100 MG TABLET PO SCH (20:25)
[2022-07-15] MEDS: MELATONIN 5 MG TABLET PO SCH (20:25)
[2022-07-16] MEDS: PROPRANOLOL HCL 10 MG TABLET PO SCH ×3 (08:01→16:26)
[2022-07-16] MEDS: OMEGA-3/DHA/EPA/FISH OIL 1,000 MG CAPSULE PO SCH (08:01)
[2022-07-16] MEDS: MAGNESIUM HYDROXIDE SUSPENSION 30 ML UDCUP PO PRN (08:01)
[2022-07-16] MEDS: DOCUSATE CALCIUM 240 MG CAPSULE PO SCH (08:01)
[2022-07-16] MEDS: MODAFINIL 100 MG TABLET PO SCH (08:01)
[2022-07-16] MEDS: PARoxetine HCL 20 MG TABLET PO SCH (08:02)
[2022-07-16] MEDS: ClonazePAM 0.5 MG TABLET PO SCH ×3 (08:02→16:26)
[2022-07-16] MEDS: BuPROPion HCL XL 150 MG ER TABLET PO SCH (08:13)
[2022-07-16 09:11] VITALS: BP 130/96
[2022-07-16] MEDS ORDERED: BISACODYL 5 MG EC TABLET PO ONE (15:15)
[2022-07-16] MEDS: MIRTAZAPINE 15 MG TABLET PO SCH (20:42)
[2022-07-16] MEDS: MELATONIN 5 MG TABLET PO SCH (20:42)
[2022-07-16] MEDS: TraZODone HCL 100 MG TABLET PO SCH (20:42)
[2022-07-16 20:49] VITALS: BP 126/71
[2022-07-17] MEDS: BISACODYL 5 MG EC TABLET PO SCH (09:45)
[2022-07-17] MEDS: DOCUSATE CALCIUM 240 MG CAPSULE PO SCH (09:45)
[2022-07-17] MEDS: OMEGA-3/DHA/EPA/FISH OIL 1,000 MG CAPSULE PO SCH (09:46)
[2022-07-17] MEDS: SENNOSIDES 8.6 MG TABLET PO SCH (09:46)
[2022-07-17] MEDS: PROPRANOLOL HCL 10 MG TABLET PO SCH ×3 (09:46→16:37)
[2022-07-17] MEDS: BuPROPion HCL XL 150 MG ER TABLET PO SCH (09:47)
[2022-07-17] MEDS: ClonazePAM 0.5 MG TABLET PO SCH ×3 (09:47→16:37)
[2022-07-17] MEDS: MODAFINIL 100 MG TABLET PO SCH (09:47)
[2022-07-17] MEDS: PARoxetine HCL 20 MG TABLET PO SCH (09:47)
[2022-07-17 09:52] VITALS: BP 127/94
[2022-07-17 13:19] VITALS: BP 123/82
[2022-07-17 16:36] VITALS: BP 135/91
[2022-07-17] MEDS: MELATONIN 5 MG TABLET PO SCH (20:40)
[2022-07-17] MEDS: MIRTAZAPINE 15 MG TABLET PO SCH (20:40)
[2022-07-17 20:41] VITALS: BP 118/83
[2022-07-17] MEDS: TraZODone HCL 100 MG TABLET PO SCH (20:41)
[2022-07-18] MEDS: PROPRANOLOL HCL 10 MG TABLET PO SCH ×3 (08:08→17:16)
[2022-07-18] MEDS: BISACODYL 5 MG EC TABLET PO SCH (08:08)
[2022-07-18] MEDS: PARoxetine HCL 20 MG TABLET PO SCH (08:08)
[2022-07-18] MEDS: OMEGA-3/DHA/EPA/FISH OIL 1,000 MG CAPSULE PO SCH (08:08)
[2022-07-18] MEDS: MODAFINIL 100 MG TABLET PO SCH (08:09)
[2022-07-18] MEDS: ClonazePAM 0.5 MG TABLET PO SCH ×3 (08:09→17:16)
[2022-07-18] MEDS: SENNOSIDES 8.6 MG TABLET PO SCH (08:09)
[2022-07-18] MEDS: DOCUSATE CALCIUM 240 MG CAPSULE PO SCH (08:12)
[2022-07-18] MEDS: BuPROPion HCL XL 150 MG ER TABLET PO SCH (08:12)
[2022-07-18 08:22] VITALS: BP 133/95
[2022-07-18 12:48] VITALS: BP 127/93
[2022-07-18 17:15] VITALS: BP 134/82
[2022-07-18 20:26] VITALS: BP 129/81
[2022-07-18] MEDS: MIRTAZAPINE 15 MG TABLET PO SCH (20:33)
[2022-07-18] MEDS: MELATONIN 5 MG TABLET PO SCH (20:34)
[2022-07-18] MEDS ORDERED: TraZODone HCL 100 MG TABLET PO SCH ×2 (21:00)
[2022-07-19 08:20] VITALS: BP 137/97
[2022-07-19] MEDS: DOCUSATE CALCIUM 240 MG CAPSULE PO SCH (08:28)
[2022-07-19] MEDS: PARoxetine HCL 20 MG TABLET PO SCH (08:29)
[2022-07-19] MEDS: BuPROPion HCL XL 150 MG ER TABLET PO SCH (08:29)
[2022-07-19] MEDS: SENNOSIDES 8.6 MG TABLET PO SCH (08:29)
[2022-07-19] MEDS: BISACODYL 5 MG EC TABLET PO SCH (08:29)
[2022-07-19] MEDS: OMEGA-3/DHA/EPA/FISH OIL 1,000 MG CAPSULE PO SCH (08:30)
[2022-07-19] MEDS: ClonazePAM 0.5 MG TABLET PO SCH ×3 (08:30→16:55)
[2022-07-19] MEDS: PROPRANOLOL HCL 10 MG TABLET PO SCH ×2 (08:30→12:51)
[2022-07-19] MEDS: MODAFINIL 100 MG TABLET PO SCH (08:48)
[2022-07-19 12:46] VITALS: BP 126/93
[2022-07-19 14:31] LABS: GLUCOMETER DEV NAME(LOC) POC.BV
[2022-07-19] MEDS ORDERED: PROPRANOLOL HCL 10 MG TABLET PO SCH (17:00)
[2022-07-19] MEDS: MELATONIN 5 MG TABLET PO SCH (20:27)
[2022-07-19] MEDS: MIRTAZAPINE 15 MG TABLET PO SCH (20:27)
[2022-07-19 20:53] VITALS: BP 132/85
[2022-07-20] MEDS: BuPROPion HCL XL 150 MG ER TABLET PO SCH (06:52)
[2022-07-20] MEDS ORDERED: PARoxetine HCL 20 MG TABLET PO SCH (07:00)
[2022-07-20] MEDS ORDERED: MODAFINIL 100 MG TABLET PO SCH (07:00)
[2022-07-20 08:33] VITALS: BP 140/101
[2022-07-20] MEDS: PROPRANOLOL HCL 40 MG TABLET PO SCH ×3 (08:33→16:06)
[2022-07-20] MEDS: BISACODYL 5 MG EC TABLET PO SCH (08:33)
[2022-07-20] MEDS: SENNOSIDES 8.6 MG TABLET PO SCH (08:34)
[2022-07-20] MEDS: OMEGA-3/DHA/EPA/FISH OIL 1,000 MG CAPSULE PO SCH (08:34)
[2022-07-20] MEDS: ClonazePAM 0.5 MG TABLET PO SCH ×3 (08:34→16:06)
[2022-07-20] MEDS ORDERED: BuPROPion HCL XL 150 MG ER TABLET PO SCH (09:00)
[2022-07-20 12:55] VITALS: BP 142/94
[2022-07-20 16:00] VITALS: BP 140/95
[2022-07-20] MEDS: ACETAMINOPHEN 325 MG TABLET PO PRN (16:06)
[2022-07-20 20:10] VITALS: BP 140/90
[2022-07-20] MEDS: MELATONIN 5 MG TABLET PO SCH (20:23)
[2022-07-20] MEDS: MIRTAZAPINE 15 MG TABLET PO SCH (20:23)
[2022-07-21] MEDS: BuPROPion HCL XL 150 MG ER TABLET PO SCH (06:55)
[2022-07-21] MEDS: MODAFINIL 100 MG TABLET PO SCH (06:55)
[2022-07-21] MEDS: PARoxetine HCL 10 MG TABLET PO SCH (06:56)
[2022-07-21] MEDS: FLUoxetine HCL 20 MG CAPSULE PO SCH (06:56)
[2022-07-21 08:10] VITALS: BP 141/95
[2022-07-21] MEDS: ClonazePAM 0.5 MG TABLET PO SCH ×3 (08:25→16:30)
[2022-07-21] MEDS: BISACODYL 5 MG EC TABLET PO SCH (08:25)
[2022-07-21] MEDS: OMEGA-3/DHA/EPA/FISH OIL 1,000 MG CAPSULE PO SCH (08:26)
[2022-07-21] MEDS: MULTIVITAMINS WITH MINERALS, THERAPEUTIC TABLET PO SCH (08:26)
[2022-07-21] MEDS: SENNOSIDES 8.6 MG TABLET PO SCH (08:26)
[2022-07-21] MEDS: PROPRANOLOL HCL 40 MG TABLET PO SCH ×3 (08:26→16:30)
[2022-07-21 12:15] VITALS: BP 115/85
[2022-07-21 16:26] VITALS: BP 131/96
[2022-07-21 20:34] VITALS: BP 148/93
[2022-07-21] MEDS: MIRTAZAPINE 15 MG TABLET PO SCH (20:44)
[2022-07-21] MEDS: MELATONIN 5 MG TABLET PO SCH (20:44)
[2022-07-21] MEDS: ACETAMINOPHEN 325 MG TABLET PO PRN (20:48)
[2022-07-22] MEDS: FLUoxetine HCL 20 MG CAPSULE PO SCH (06:36)
[2022-07-22] MEDS: PARoxetine HCL 10 MG TABLET PO SCH (06:36)
[2022-07-22] MEDS: BuPROPion HCL XL 150 MG ER TABLET PO SCH (06:37)
[2022-07-22] MEDS: MODAFINIL 100 MG TABLET PO SCH (06:37)
[2022-07-22] MEDS: MULTIVITAMINS WITH MINERALS, THERAPEUTIC TABLET PO SCH (08:55)
[2022-07-22] MEDS: BISACODYL 5 MG EC TABLET PO SCH (08:55)
[2022-07-22] MEDS: OMEGA-3/DHA/EPA/FISH OIL 1,000 MG CAPSULE PO SCH (08:56)
[2022-07-22] MEDS: ClonazePAM 0.5 MG TABLET PO SCH ×3 (08:56→16:39)
[2022-07-22] MEDS: SENNOSIDES 8.6 MG TABLET PO SCH (08:56)
[2022-07-22] MEDS: PROPRANOLOL HCL 40 MG TABLET PO SCH ×3 (08:56→16:39)
[2022-07-22 09:05] VITALS: BP 144/104
[2022-07-22 10:37] VITALS: BP 147/94
[2022-07-22 13:32] VITALS: BP 117/91
[2022-07-22 16:36] VITALS: BP 136/93
[2022-07-22 20:00] VITALS: BP 130/87
[2022-07-22] MEDS: MELATONIN 5 MG TABLET PO SCH (21:57)
[2022-07-22] MEDS: MIRTAZAPINE 15 MG TABLET PO SCH (21:57)
[2022-07-23] MEDS: MODAFINIL 100 MG TABLET PO SCH (06:32)
[2022-07-23] MEDS: PARoxetine HCL 10 MG TABLET PO SCH (06:32)
[2022-07-23] MEDS: FLUoxetine HCL 20 MG CAPSULE PO SCH (06:32)
[2022-07-23] MEDS: BuPROPion HCL XL 150 MG ER TABLET PO SCH (06:32)
[2022-07-23] MEDS: OMEGA-3/DHA/EPA/FISH OIL 1,000 MG CAPSULE PO SCH (08:43)
[2022-07-23] MEDS: BISACODYL 5 MG EC TABLET PO SCH (08:43)
[2022-07-23] MEDS: MULTIVITAMINS WITH MINERALS, THERAPEUTIC TABLET PO SCH (08:44)
[2022-07-23] MEDS: SENNOSIDES 8.6 MG TABLET PO SCH (08:44)
[2022-07-23] MEDS: ClonazePAM 0.5 MG TABLET PO SCH ×3 (08:44→17:13)
[2022-07-23] MEDS: PROPRANOLOL HCL 40 MG TABLET PO SCH ×2 (08:44→13:00)
[2022-07-23 10:08] VITALS: BP 132/95
[2022-07-23] MEDS ORDERED: PROPRANOLOL HCL 40 MG TABLET PO SCH (17:00)
[2022-07-23 20:42] VITALS: BP 135/97
[2022-07-23] MEDS: MIRTAZAPINE 15 MG TABLET PO SCH (20:42)
[2022-07-23] MEDS: MELATONIN 5 MG TABLET PO SCH (20:42)
[2022-07-23] MEDS ORDERED: PROPRANOLOL HCL 10 MG TABLET PO ONE (21:00)
[2022-07-24] MEDS: PARoxetine HCL 20 MG TABLET PO SCH (06:42)
[2022-07-24] MEDS: MODAFINIL 100 MG TABLET PO SCH (06:42)
[2022-07-24] MEDS: FLUoxetine HCL 20 MG CAPSULE PO SCH (06:42)
[2022-07-24] MEDS: BuPROPion HCL XL 150 MG ER TABLET PO SCH (06:43)
[2022-07-24] MEDS: MULTIVITAMINS WITH MINERALS, THERAPEUTIC TABLET PO SCH (08:40)
[2022-07-24] MEDS: ClonazePAM 0.5 MG TABLET PO SCH ×3 (08:41→16:17)
[2022-07-24] MEDS: OMEGA-3/DHA/EPA/FISH OIL 1,000 MG CAPSULE PO SCH (08:41)
[2022-07-24] MEDS: BISACODYL 5 MG EC TABLET PO SCH (08:42)
[2022-07-24] MEDS: SENNOSIDES 8.6 MG TABLET PO SCH (08:43)
[2022-07-24 09:18] VITALS: BP 140/101
[2022-07-24] MEDS: PROPRANOLOL HCL 40 MG TABLET PO SCH ×4 (10:50→21:00)
[2022-07-24 20:45] VITALS: BP 136/80
[2022-07-24] MEDS: MIRTAZAPINE 15 MG TABLET PO SCH (21:00)
[2022-07-24] MEDS: MELATONIN 5 MG TABLET PO SCH (21:00)
[2022-07-25] MEDS: BuPROPion HCL XL 150 MG ER TABLET PO SCH (06:56)
[2022-07-25] MEDS: FLUoxetine HCL 20 MG CAPSULE PO SCH (06:56)
[2022-07-25] MEDS: PARoxetine HCL 20 MG TABLET PO SCH (06:56)
[2022-07-25 08:46] VITALS: BP 148/101
[2022-07-25] MEDS: BISACODYL 5 MG EC TABLET PO SCH (08:46)
[2022-07-25] MEDS: PROPRANOLOL HCL 40 MG TABLET PO SCH ×4 (08:47→20:59)
[2022-07-25] MEDS: MULTIVITAMINS WITH MINERALS, THERAPEUTIC TABLET PO SCH (08:47)
[2022-07-25] MEDS: SENNOSIDES 8.6 MG TABLET PO SCH (08:47)
[2022-07-25] MEDS: ClonazePAM 0.5 MG TABLET PO SCH ×3 (08:47→16:29)
[2022-07-25] MEDS: OMEGA-3/DHA/EPA/FISH OIL 1,000 MG CAPSULE PO SCH (08:47)
[2022-07-25 13:18] VITALS: BP 141/72
[2022-07-25] MEDS ORDERED: Bisacodyl PO (15:34)
[2022-07-25] MEDS ORDERED: BUPR-49 PO (15:34)
[2022-07-25] MEDS ORDERED: SENN-187 PO (15:34)
[2022-07-25] MEDS ORDERED: PROP40TA7 PO (15:34)
[2022-07-25] MEDS ORDERED: PARO-37 PO (15:34)
[2022-07-25] MEDS ORDERED: MIRT-89 PO (15:34)
[2022-07-25] MEDS ORDERED: CLON-592 PO ×2 (15:34→19:56)
[2022-07-25] MEDS ORDERED: MELA5TAB40 PO (15:34)
[2022-07-25] MEDS ORDERED: OMEG-135 PO (15:34)
[2022-07-25] MEDS ORDERED: FLUO20CA36 PO (15:34)
[2022-07-25] MEDS: MELATONIN 5 MG TABLET PO SCH (21:00)
[2022-07-25] MEDS: MIRTAZAPINE 15 MG TABLET PO SCH (21:00)
[2022-07-25 22:54] VITALS: BP 138/97
[2022-07-26] MEDS: FLUoxetine HCL 20 MG CAPSULE PO SCH (07:08)
[2022-07-26] MEDS: PARoxetine HCL 20 MG TABLET PO SCH (07:08)
[2022-07-26] MEDS: BuPROPion HCL XL 150 MG ER TABLET PO SCH (07:09)
[2022-07-26] MEDS: PROPRANOLOL HCL 40 MG TABLET PO SCH ×2 (08:36→13:25)
[2022-07-26] MEDS: ClonazePAM 0.5 MG TABLET PO SCH ×2 (08:36→13:24)
[2022-07-26] MEDS: MULTIVITAMINS WITH MINERALS, THERAPEUTIC TABLET PO SCH (08:36)
[2022-07-26] MEDS: SENNOSIDES 8.6 MG TABLET PO SCH (08:36)
[2022-07-26] MEDS: BISACODYL 5 MG EC TABLET PO SCH (08:36)
[2022-07-26] MEDS: OMEGA-3/DHA/EPA/FISH OIL 1,000 MG CAPSULE PO SCH (08:36)
[2022-07-26 08:51] VITALS: BP 120/82
[2022-07-26] MEDS ORDERED: BISA-123 PO (09:16)
[2022-07-26] MEDS ORDERED: BISA-151 PO (09:17)
[2022-07-26] MEDS ORDERED: BUPR-50 PO (09:20)
[2022-07-26] MEDS ORDERED: FLUO-341 PO (09:23)
[2022-07-26] MEDS ORDERED: MELA5TAB21 PO ×2 (09:34→09:35)
[2022-07-26] MEDS ORDERED: MIRT7.5T11 PO (09:35)
[2022-07-26 10:26] LABS: GLUCOMETER DEV NAME(LOC) POC.BV
[2022-07-26] MEDS ORDERED: PROP20TA96 PO (11:29)
[2022-07-26] MEDS ORDERED: PROP40TA7 PO (11:30)
[2022-07-26] MEDS ORDERED: FLUO-177 PO (13:04)
[2022-07-26] MEDS ORDERED: CLON-592 PO (13:05)
[2022-07-26] MEDS ORDERED: PARO-38 PO ×2 (13:08→13:09)
== END 2022-07-26 15:30 | disposition home or self-care (01) | DRG 885 ==
LOC: B2S 14:57
PROVIDERS: ADMIT Psychiatry & Neurology Psychiatry; ATTEND Psychiatry & Neurology Psychiatry
DX: F33.2 Major depressive disorder, recurrent severe without psychotic features (principal); F10.229 Alcohol dependence with intoxication, unspecified; G93.41 Metabolic encephalopathy; R45.851 Suicidal ideations; Z20.822 Contact with and (suspected) exposure to COVID-19; F17.200 Nicotine dependence, unspecified, uncomplicated; F41.9 Anxiety disorder, unspecified; J44.9 Chronic obstructive pulmonary disease, unspecified; G40.409 Other generalized epilepsy and epileptic syndromes, not intractable, without status epilepticus; Z55.9 Problems related to education and literacy, unspecified; Z23 Encounter for immunization; Z59.9 Problem related to housing and economic circumstances, unspecified; Z63.9 Problem related to primary support group, unspecified; Z65.3 Problems related to other legal circumstances; Z79.899 Other long term (current) drug therapy; Z91.199 Patient's noncompliance with other medical treatment and regimen due to unspecified reason; Z91.51 Personal history of suicidal behavior; Z59.00 Homelessness unspecified; Y90.9 Presence of alcohol in blood, level not specified
CPT/HCPCS: 71046; 80053; 80061; 80164; 80307; 81001; 81003; 83036; 84153; 84439; 84443; 84484; 85025; 86480; 86592; 87081; 87086; 87186; 90686; J3420; Q9967; 36415-L1; 36415-TC; G0008